=== PATIENT | female | born 1945 | race Caucasian/White ===

== ENCOUNTER 2017-01-23 17:22 | Emergency (ER) | payer BC, MEDICARE ==
[2017-01-23] MEDS ORDERED: Famotidine IV* 10 MG/ML 2 ML (20 mg) ONE (17:27)
[2017-01-23] MEDS ORDERED: diPHENhydraMINE IV* 50 MG/ML 1 ml VIAL (BENADRYL) ONE (17:28)
[2017-01-23] MEDS ORDERED: methylPREDNISolone 125 MG* 2 ML VIAL ONE (17:29)
[2017-01-23] MEDS ORDERED: diPHENhydraMINE IV* 25 MG in NS 0.9% 50 ML* 50 ML IVPB ONE (17:32)
[2017-01-23] MEDS ORDERED: methylPREDNISolone 125 MG* 2 ML VIAL IV ONE (17:32)
[2017-01-23] MEDS ORDERED: Famotidine IV* 10 MG/ML 2 ML (20 mg) IV SLOW PU ONE (17:32)
[2017-01-23] MEDS ORDERED: NS 0.9% 1000 ML* 1,000 ML IV SCH (17:45)
[2017-01-23 17:49] VITALS: BP 148/88
--- NOTE | 2017-01-23 18:02 | UC ---
Allergic Reaction HPI - HPI Summary HPI Summary: Stung by several bees about 20 minutes prior to arrival, hands and feet red, eyes and lips swollen, - History of Current Complaint Chief Complaint: UCAllergicReaction Stated Complaint: BEE STINGS Time Seen by Provider: 01/23/17 17:25 Hx Obtained From: Patient, Family/Hairspring Inspector ?: No Onset/Duration: Sudden Onset, Lasting Minutes, Still Present Severity Initially: Moderate Severity Currently: Moderate Location: Diffuse Character: Swelling, Pruritus, Hives Aggrevating Factor(s): Nothing Associated Signs And Symptoms: Positive: Rash - Allergies/Home Medications Allergies/Adverse Reactions: Allergies Allergy/AdvReac Type Severity Reaction Status Date / Time Sulfa Antibiotics Allergy Intermediate Hives Verified 06/22/15 11:31 Home Medications: Home Medications NK [No Home Medications Reported] 01/23/17 [History Confirmed 01/23/17] PMH/Surg Hx/FS Hx/Imm Hx Previously Healthy: Yes - Surgical History Surgical History: Yes Surgery Procedure, Year, and Place: hysterectomy, left ankle fracture, appendectomy - Family History Known Family History: Positive: Hypertension - Social History Occupation: Retired Lives: With Family Alcohol Use: None Substance Use Type: None Smoking Status (MU): Never Smoked Tobacco Review of Systems Constitutional: Negative Skin: Rash Eyes: Negative ENT: Negative Respiratory: Negative Cardiovascular: Negative Gastrointestinal: Negative Genitourinary: Negative Motor: Negative Neurovascular: Negative Musculoskeletal: Negative, Edema - hands, feet, lips, eyes Neurological: Negative Psychological: Negative All Other Systems Reviewed And Are Negative: Yes Physical Exam Triage Information Reviewed: Yes Appearance: Well-Nourished, Ill-Appearing, Pain Distress Vital Signs: Initial Vital Signs Temp 97.1 F 01/23/17 17:30 Pulse 105 01/23/17 17:30 Resp 14 01/23/17 17:30 BP 148/88 01/23/17 17:30 Pulse Ox 98 01/23/17 17:30 Vital Signs Reviewed: Yes Eye Exam: Normal Eyes: Positive: Conjunctiva Clear, Other: - upper and lower lids swollen ENT Exam: Normal ENT: Positive: Normal ENT inspection, Hearing grossly normal, Pharynx normal, TMs normal. Negative: Nasal congestion, Nasal drainage, Tonsillar swelling, Tonsillar exudate, Trismus, Muffled/hoarse voice Dental Exam: Normal Neck exam: Normal Neck: Positive: Supple, Nontender, No Lymphadenopathy Respiratory Exam: Normal Respiratory: Positive: Chest non-tender, Lungs clear, Normal breath sounds, No respiratory distress, No accessory muscle use Cardiovascular Exam: Normal Cardiovascular: Positive: RRR, No Murmur, Pulses Normal, Brisk Capillary Refill Musculoskeletal Exam: Normal Musculoskeletal: Positive: Strength Intact, ROM Intact, Edema @ - hands and feet Neurological Exam: Normal Neurological: Positive: Alert, Muscle Tone Normal Psychological Exam: Normal Psychological: Positive: Normal Response To Family Skin Exam: Normal Skin: Positive: Other - multiple bee stings and hives feet and hand Re-Evaluation - Re-Evaluation First Eval Change: Improved - pepcid, benadryl, solumedrol given---sats up to 97% hr 93 rr 20 feeling better, hives begining to resolve Allergic Reaction Course/Dx - Course Course Of Treatment: transfer to ed by EMS - Differential Dx/Diagnosis Differential Diagnosis/HQI/PQRI: Anaphylaxis, Local Allergic Reaction Provider Diagnoses: Allergic Rx to bee stings - Physician Notification/Consults Instructed by Provider To: Transfer Discharge - Discharge Plan Condition: Improved Disposition: TRANS HIGHER LVL OF CARE FAC
== END 2017-01-23 17:57 | disposition short-term general hospital (02) ==
LOC: UCEAST 17:22
DX: T63.441A Toxic effect of venom of bees, accidental (unintentional), initial encounter (principal); L98.8 Other specified disorders of the skin and subcutaneous tissue; R22.0 Localized swelling, mass and lump, head; Y92.9 Unspecified place or not applicable
CPT/HCPCS: 96361; 96365; 96375; 99213; G0463; J1200; J2930

== ENCOUNTER 2017-01-23 18:17 | Emergency (ER) | payer MEDICARE ==
[2017-01-23 18:37] VITALS: BP 139/92
[2017-01-23] MEDS ORDERED: diPHENhydraMINE PO* 25 MG PO ONE (20:31)
--- NOTE | 2017-01-24 16:17 | ED ---
Roberto Keith Alok, scribed for Magan Zapata MD on 01/23/17 at 1939 . Skin Complaint - HPI Summary HPI Summary: 71F presents to the ED sent here from [facility] after being stung multiple times by a swarm of bees. Pt states that after being stung on the neck, face, arms, and legs, she applied vinegar to her skin and began to feel tingling in her hands and feet accompanied by redness. Pt denies dysphagia or SOB. - History of Current Complaint Chief Complaint: EDAllergicReaction Time Seen by Provider: 01/23/17 18:37 Stated Complaint: ALLERGIC REACTION-SENT FROM [facility] Hx Obtained From: Patient Onset/Duration: Still Present Skin Exposure Onset/Duration: Hours Ago Timing: Constant Onset Severity: Moderate Current Severity: Moderate Skin Location: Ear, Neck, Arm, Leg Character: Pain, Redness Aggravating Symptom(s): Nothing Related History: Insect Bite/Sting - Allergy/Home Medications Allergies/Adverse Reactions: Allergies Allergy/AdvReac Type Severity Reaction Status Date / Time Sulfa Antibiotics Allergy Intermediate Hives Verified 06/22/15 11:31 PMH/Surg Hx/FS Hx/Imm Hx Endocrine/Hematology History: Denies: Hx Diabetes, Hx Thyroid Disease Cardiovascular History: Reports: Hx Congenital Heart Disease - family hx mi per pt told congenital Denies: Hx Hypertension Respiratory History: Denies: Hx Asthma, Hx Chronic Obstructive Pulmonary Disease (COPD) GI History: Reports: Other GI Disorders - pain,discomfort Denies: Hx Ulcer History: Reports: Other Problems/Disorders - stone removed - Cancer History Hx Chemotherapy: No Hx Radiation Therapy: No - Surgical History Surgery Procedure, Year, and Place: hysterectomy, left ankle fracture, appendectomy Infectious Disease History: No Infectious Disease History: Denies: Hx Hepatitis, Hx Human Immunodeficiency Virus (HIV), History Other Infectious Disease, Traveled Outside the [place] in Last 30 Days - Family History Known Family History: Positive: Hypertension - Social History Occupation: Retired Lives: With Family Alcohol Use: None Substance Use Type: Reports: None Smoking Status (MU): Never Smoked Tobacco Review of Systems Negative: Other - Dysphagia Negative: Shortness Of Breath Positive: Rash, Other - multiple bee stings legs, arms, face, neck All Other Systems Reviewed And Are Negative: Yes Physical Exam Triage Information Reviewed: Yes Vital Signs On Initial Exam: Initial Vitals Temp Pulse Resp BP Pulse Ox 97.7 F 98 16 139/92 93 01/23/17 18:31 01/23/17 18:31 01/23/17 18:31 01/23/17 18:31 01/23/17 18:31 Vital Signs Reviewed: Yes Appearance: Positive: Well-Appearing, No Pain Distress Skin: Positive: Other - Right ear red and slightly swollen Head/Face: Positive: Normal Head/Face Inspection Eyes: Positive: Normal ENT: Positive: Other - right ear red and swollen slightly Neck: Positive: Supple, Nontender Respiratory/Lung Sounds: Positive: Clear to Auscultation, Breath Sounds Present Cardiovascular: Positive: RRR Abdomen Description: Positive: Nontender, Soft Bowel Sounds: Positive: Present Musculoskeletal: Positive: Normal Neurological: Positive: Normal Psychiatric: Positive: Normal, Affect/Mood Appropriate - [place] Coma Scale Coma Scale Total: 15 Diagnostics - Vital Signs Vital Signs Temp Pulse Resp BP Pulse Ox 01/23/17 18:31 97.7 F 98 16 139/92 93 - Laboratory Lab Statement: Any lab studies that have been ordered have been reviewed, and results considered in the medical decision making process. Course/Dx - Course Course Of Treatment: Ms. Mendoza got stung several times by what she says are honey bees. She started to have diffuse itching and rash without difficulty swallowing or breathing and she went to [facility]. She was given Benadryl IV either there ir in the rig and felt a lot better by the time she got here. She has DM and I was hesitant to give her steroids unless she absolutely needs them. She got additional H2 blockers and we watched her. She did fine and was D/C'd. - Diagnoses Provider Diagnoses: Allergic reaction to bee sting Discharge - Discharge Plan Condition: Stable Disposition: HOME Patient Education Materials: General Allergic Reaction (ED) Referrals: [facility] [Outside] Non Staff,Doctor [Primary Care Provider] - The documentation as recorded by the Roberto crawford Alok accurately reflects the service I personally performed and the decisions made by me, Magan Zapata MD.
== END 2017-01-23 20:50 | disposition home or self-care (01) ==
LOC: ED 18:17
DX: T63.441A Toxic effect of venom of bees, accidental (unintentional), initial encounter (principal); R21 Rash and other nonspecific skin eruption; Y92.89 Other specified places as the place of occurrence of the external cause
CPT/HCPCS: 99282